=== PATIENT | male | born 1945 | race Caucasian/White ===

== ENCOUNTER 2017-12-07 12:46 | Outpatient (CLI) | payer MEDICARE, OTHER ==
--- NOTE | 2017-12-07 14:32 | CT Report ---
CT CHEST WITHOUT CONTRAST: 12/07/2017 CLINICAL INDICATION: Shortness of breath. TECHNIQUE: Axial CT images of the chest were obtained without intravenous contrast. COMPARISON: No previous CT is available for comparison. 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 The heart and great vessels demonstrate mild atherosclerotic calcifications. No hilar or mediastinal lymphadenopathy is present. No axillary adenopathy is seen. The lungs demonstrate minimal dependent atelectasis. No pulmonary nodule or mass lesion is present. No focal consolidation, effusion, or pneumothorax. Osseous structures demonstrate degenerative changes. Limited evaluation of upper abdominal structures demonstrates normal adrenal glands. IMPRESSION: SUBSTERNAL THYROID GOITER. OTHERWISE, UNREMARKABLE CT OF THE CHEST WITHOUT CONTRAST. CT DOSE REDUCTION STATEMENT In accordance with CT protocol optimization, one or more of the following dose reduction techniques were utilized for this exam: automated exposure control, adjustment of mA and/or KV based on patient size, or use of iterative reconstructive technique. TD: 12/07/2017 14:09
[2017-12-07] MEDS ORDERED: ALBUTEROL NEB 2.5 MG/3 ML INH PRN (16:31)
== END 2017-12-07 12:47 | disposition home or self-care (01) ==
LOC: DI 12:46
PROVIDERS: ATTEND Internal Medicine
DX: R06.02 Shortness of breath (principal); Z87.891 Personal history of nicotine dependence; E04.9 Nontoxic goiter, unspecified
CPT/HCPCS: 71250; 94060

== ENCOUNTER 2017-12-07 12:47 | Outpatient (CLI) | payer MEDICARE, OTHER | END 2017-12-07 12:48 | disposition home or self-care (01) | LOC: RT 12:47 | PROVIDERS: ATTEND Internal Medicine | DX: R06.00 Dyspnea, unspecified (principal) ==

== ENCOUNTER 2023-04-06 14:42 | Outpatient (CLI) | payer MEDICARE, OTHER ==
[2023-04-06] MEDS ORDERED: ALBUTEROL 1 PUFF INH STA (17:35)
== END 2023-04-06 14:43 | disposition home or self-care (01) ==
LOC: RT 14:42
PROVIDERS: ATTEND Student in an Organized Health Care Education/Training Program
DX: R06.00 Dyspnea, unspecified (principal)
CPT/HCPCS: 94060; 94729

== ENCOUNTER 2023-06-03 09:20 | Outpatient (CLI) | payer MEDICARE, OTHER | END 2023-06-03 09:21 | disposition home or self-care (01) | LOC: DI 09:20 | PROVIDERS: ATTEND Student in an Organized Health Care Education/Training Program | DX: R06.01 Orthopnea (principal) | CPT/HCPCS: 93306 ==

== ENCOUNTER 2023-12-31 14:29 | Outpatient (CLI) | payer MEDICARE, OTHER ==
--- NOTE | 2023-12-31 15:27 | Ultrasound Report ---
PROCEDURE: Bladder INDICATIONS: NOCTURIA TECHNIQUE: Real-time scanning was performed of the bladder, with image documentation. COMPARISON: CT 10/01/2011 FINDINGS: Bladder: Pre-void bladder volume is 54 mL. Post-void residual is 5 mL. Pre-void images demonstrate no intraluminal masses or stones. On pre-void images, 2.6 x 2.9 x 2.3 ureteral jets are noted with color Doppler interrogation. (Of note, ureteral jets may not be detectable in up to 25% of cases due to insufficient differences in specific gravity between ureteral and bladder urine). Miscellaneous: No free pelvic fluid. IMPRESSION: Post void residual 5 mL, within normal limits. Prostate measures 2.6 x 2.9 x 2.3 cm. Reviewed by: Reggie Tai MD on 12/31/2023 3:26 PM PDT Approved by: Reggie Tai MD on 12/31/2023 3:26 PM PDT Station ID: [id number]
== END 2023-12-31 14:30 | disposition home or self-care (01) ==
LOC: DI 14:29
PROVIDERS: ATTEND Internal Medicine
DX: R35.1 Nocturia (principal)